=== PATIENT | female | born 1955 | race Caucasian/White ===

== ENCOUNTER 2019-11-26 13:07 | Outpatient (CLI) | payer MEDICARE, OTHER, SELFPAY ==
--- NOTE | ~2019-11-26 | MM_ITS ---
EXAMINATION: MM screening manuel BI w minnie HISTORY: Screening TECHNIQUE: Craniocaudal and mediolateral oblique 3-D tomosynthesis images were obtained and synthetic 2-D images were generated. CAD analysis was submitted and interpreted. COMPARISON: Comparison to multiple prior studies sequentially, with oldest reviewed study dated 01/22. BREAST PARENCHYMAL COMPOSITION: The breasts are heterogenously dense, which may obscure small masses. FINDINGS: There are is a developing asymmetry in the upper outer quadrant of the right breast. The le ft breast is stable without evidence for malignancy. IMPRESSION: 1. New focal asymmetry upper outer quadrant of the right breast posteriorly. 2. Additional mammographic views and possible breast ultrasound are recommended. BI-RADS Category 0: Incomplete: Needs additional imaging evaluation. Reviewed, dictated and finalized at location A. IMPRESSION: 1. New focal asymmetry upper outer quadrant of the right breast posteriorly. 2. Additional mammographic views and possible breast ultrasound are recommended . BI-RADS Category 0: Incomplete: Needs additional imaging evaluation.
--- NOTE | ~2019-11-26 | XR_ITS ---
XR hip LT min 2V DATE: 11/26/2019 13:46 INDICATION: Left hip pain TECHNIQUE: AP and lateral views of left hip COMPARISON: None FINDINGS: No fracture or dislocation, avascular necrosis or bone destruction. Left hip joint space is well preserved. IMPRESSION: Negative Reviewed, dictated and finalized at location B. IMPRESSION: Negative
--- NOTE | ~2019-11-26 | XR_ITS ---
XR hip RT min 2V DATE: 11/26/2019 13:46 INDICATION: Bilateral hip pain TECHNIQUE: AP and lateral views of right hip COMPARISON: None FINDINGS: No fracture, dislocation, avascular necrosis or bone destruction. Right hip joint space is well preserved. IMPRESSION: No significant abnormality Reviewed, dictated and finalized at location B. IMPRESSION: No significant abnormality
== END 2019-11-26 13:08 | disposition home or self-care (01) ==
LOC: CHSIMG 13:11
PROVIDERS: PCP Family Medicine; Visit Provider Nurse Practitioner
DX: Z12.31 Encounter for screening mammogram for malignant neoplasm of breast (principal); M25.551 Pain in right hip
CPT/HCPCS: 73502; 77063; 77067

== ENCOUNTER 2019-12-13 09:59 | Outpatient (CLI) | payer MEDICARE, OTHER, SELFPAY ==
--- NOTE | ~2019-12-13 | MMUS_ITS ---
EXAMINATION: MM diagnostic manuel RT w minnie, US breast RT limited HISTORY: Right breast asymmetry on screening mammogram TECHNIQUE: Additional 3-D tomosynthesis images of the right breast were performed and synthetic 2-D i mages were generated. CAD analysis was submitted and interpreted. High resolution limited right breas t ultrasound was performed. COMPARISON: 11/26/2019, 10/09/2018, 10/04/2017 FINDINGS: MAMMOGRAPHIC FINDINGS: The right breast asymmetry described on recent screening mammogram does not definitely persist with s pot compression. Stable benign calcifications are present in the upper outer quadrant of the right br east. There is no suspicious architectural distortion. ULTRASOUND: There is a 1.0 x 0.8 cm oval, circumscribed, parallel mass at the 9:00 location 5 cm from the nipple. The mass appears to be predominantly anechoic with possible internal septation. The margin is circum scribed with some areas of gentle lobulation. There is posterior acoustic enhancement and no internal vascularity. IMPRESSION: 1. Probably benign right breast mass. 2. Recommend 6 month follow-up right diagnostic mammogram and ultrasound. BI-RADS category 3, probably benign findings. Reviewed, dictated and finalized at location A. IMPRESSION: 1. Probably benign right breast mass. 2. Recommend 6 month follow-up right diagnostic mammogram and ultrasound. BI-RADS category 3, probably benign findings.
== END 2019-12-13 10:00 | disposition home or self-care (01) ==
LOC: CHSIMG 10:01
PROVIDERS: PCP Nurse Practitioner; Visit Provider Family Medicine
DX: R92.8 Other abnormal and inconclusive findings on diagnostic imaging of breast (principal)
CPT/HCPCS: 76642; 77061; 77065; G0279

== ENCOUNTER 2020-07-09 08:54 | Outpatient (CLI) | payer MEDICARE, SELFPAY ==
--- NOTE | ~2020-07-09 | MMUS_ITS ---
EXAMINATION: MM diagnostic manuel RT w minnie, US breast RT limited HISTORY: Follow-up right breast mass TECHNIQUE: Additional 3-D tomosynthesis images of the right breast were performed and synthetic 2-D i mages were generated. CAD analysis was submitted and interpreted. High resolution right breast ultras ound was performed. COMPARISON: 12/13/2019 BREAST PARENCHYMAL COMPOSITION: The breasts are extremely dense, which lowers the sensitivity of mamm ography. FINDINGS: MAMMOGRAPHIC FINDINGS: There are no suspicious masses, calcifications or architectural distortion in either breast to sugges t malignancy. There are benign right breast calcifications which are stable. ULTRASOUND: Right breast ultrasound: At 9:00, 5 cm from the nipple, there is a cluster of cysts measuring up to 1 cm maximum dimension. At 9:00, 5 cm from the nipple, there is an irregular shaped hypoechoic mass me asuring 11 x 9 x 6 mm with posterior shadowing. No significant internal vascularity. IMPRESSION: 1. New irregular shaped hypoechoic right breast mass at 9:00, 5 cm from the nipple measuring 11 x 9 x 6 mm. 2. Ultrasound-guided right breast biopsy recommended. BI-RADS category 4, suspicious findings. Reviewed, dictated and finalized at location A. IMPRESSION: 1. New irregular shaped hypoechoic right breast mass at 9:00, 5 cm from the nip ple measuring 11 x 9 x 6 mm. 2. Ultrasound-guided right breast biopsy recommended. BI-RADS category 4, suspicious findings.
== END 2020-07-09 08:55 | disposition home or self-care (01) ==
LOC: CHSIMG 08:58
PROVIDERS: PCP Family Medicine; Visit Provider Nurse Practitioner
DX: R92.8 Other abnormal and inconclusive findings on diagnostic imaging of breast (principal)
CPT/HCPCS: 76642; 77061; 77065; G0279

== ENCOUNTER 2021-08-04 08:09 | Outpatient (CLI) | payer MEDICARE, SELFPAY | END 2021-08-04 08:10 | disposition home or self-care (01) | LOC: CHSAUDIO 08:11 | PROVIDERS: PCP Family Medicine; Visit Provider Otolaryngology | DX: H91.90 Unspecified hearing loss, unspecified ear (principal) | CPT/HCPCS: 92557; 92567 ==

== ENCOUNTER 2021-08-31 09:39 | Outpatient (CLI) | payer MEDICARE, SELFPAY ==
--- NOTE | ~2021-08-31 | MR_ITS ---
EXAMINATION: MR shoulder LT wo con DATE: 08/31/2021 10:28 INDICATION: Left shoulder pain with rotator cuff tear TECHNIQUE: Magnetic resonance imaging (MRI) of the left shoulder was performed without intravenous co ntrast. Sequences included axial PD-weighted FS FSE, coronal oblique PD-weighted FS FSE, coronal obli que T2-weighted FS FSE, sagittal PD-weighted FS FSE, and sagittal T1-weighted SE. COMPARISON: None. FINDINGS: Coracoacromial arch: The acromion undersurface is curved in morphology (type II). The acromion appears thin and there is a small heterotopic ossicle along the anterolateral margin of the acromion at the insertion of the oth erwise normal coracoacromial ligament. Appearance suggests possibility of prior acromioplasty althoug h no foci susceptibility artifact are seen to more specifically suggest this. Correlate with surgical history. Acromioclavicular joint appears normal. Rotator cuff: Moderate supraspinatus and mild infraspinatus tendinopathy. There is attenuation of the distal 2 cm t he supraspinatus tendon consistent with partial thickness tear which appears to involve proximal one half of the tendon thickness. Suggestion of a small region of focal fraying along the bursal side of the posterior supraspinatus tendon but with no measurable are clearly defined tear defect along eithe r the bursal or articular surfaces. The teres minor tendon is normal. Subscapularis tendinopathy with very small intrasubstance tear along the central aspect of the lesser tuberosity footplate. The defe ct at the footplate measures approximately 3 x 3 mm. Normal rotator cuff muscle bulk and signal. Biceps tendon, glenoid labrum and glenohumeral cartilage: Long head of the biceps tendon is normal. Degeneration of the posterosuperior glenoid labrum with mil d amorphous increased signal without a well-defined linear tear plane. The posterior to inferior labr um appears small but without discrete tear. Glenohumeral cartilage is normal. Fluid: Physiologic amount of fluid in the glenohumeral joint and biceps tendon sheath. No loose osteochondr al bodies. Small amount of fluid in the subacromial/subdeltoid bursa consistent with mild bursitis. Bones: Bone alignment is normal. No fracture or pathologic marrow replacing process. Mild cystic changes at the lesser and greater tuberosity. Mild feathery muscular edema along the proximal aspect of the post erior head of the deltoid muscle consistent with low-grade strain. IMPRESSION: 1. Moderate supraspinatus tendinopathy with moderate severity partial-thickness likely intrasubstance tear of the distal supraspinatus which appears thickened with small region of subtle bursal sided fr aying but without a well-defined bursal or articular sided tear defect. 2. Mild subscapularis tendinopathy with very small intrasubstance tear at the central lesser tuberosi ty footplate. 3. Degeneration of the posterior superior glenoid labrum. 4. Mild subacromial/subdeltoid bursitis. Reviewed, dictated and finalized at location A. IMPRESSION: 1. Moderate supraspinatus tendinopathy with moderate severity partial-thickness likely intrasubstance tear of the distal supraspinatus which appears thickened with small region of subtle bursal sided fraying but without a well-defined bu rsal or articular sided tear defect. 2. Mild subscapularis tendinopathy with very small intrasubstance tear at the c entral lesser tuberosity footplate. 3. Degeneration of the posterior superior glenoid labrum. 4. Mild subacromial/subdeltoid bursitis.
== END 2021-08-31 09:40 | disposition home or self-care (01) ==
LOC: CHSIMG 09:43
PROVIDERS: PCP Family Medicine; Visit Provider Specialist
DX: M25.512 Pain in left shoulder (principal)
CPT/HCPCS: 73221

== ENCOUNTER 2022-09-02 13:52 | Emergency (ER) | payer MEDICARE, SELFPAY ==
[2022-09-02 13:55] VITALS: BP 165/94; PULSE 86; RESP 17; TEMP 36.6; O2SAT 97
[2022-09-02 13:56] VITALS: BP 165/94; PULSE 85; RESP 20; TEMP 36.6; O2SAT 97
--- NOTE | 2022-09-02 14:00 | ED.EXTPRO ---
HPI - Extremity Problem General Chief complaint: Extremity Injury, Lower Stated complaint: left ankle pain Time Seen by Provider: 09/02/22 13:58 Source: patient and RN notes reviewed Mode of arrival: ambulatory Limitations: no limitations History of Present Illness HPI Narrative: patient states she has not had any new injury. About a week ago she began having pain on the inside of her left ankle. Says it has been gradually getting worse. She does stay active walking 15,000 steps per day. She is planning on going to a high school reunion tomorrow and she wanted her ankle to be better by then. She does not know what is wrong with that. She took some ibuprofen 600 mg in the morning the past few days and that has helped. MD Complaint: extremity pain Onset (ago): week(s) (1) Pain Consistency: constant Location: right and lower extremity Quality: aching and dull Radiation: none Relieving factors: rest Exacerbating factors: weight bearing and walking Associated symptoms: denies other symptoms Related Data Home Medications Medication Instructions Recorded Confirmed fenofibrate nanocrystallized 48 mg 54 mg PO DAILY 06/09/21 09/02/22 tablet levothyroxine 88 mcg capsule 88 mcg PO DAILY 06/09/21 09/02/22 Allergies Allergy/AdvReac Type Severity Reaction Status Date / Time Opioids - Morphine Analogues Allergy Unknown unknown Verified 09/02/22 14:05 [facility] Past Medical History Medical History Arthritis Asthma Thyroid disorder Social History Social History Smoking status: Never smoker Alcohol intake: never Substance use: never Exam Const: General: healthy appearing, no acute distress and alert Nutritional Appearance: well nourished Orientation/consciousness: patient oriented x3 Limitations: no limitations HENMT: Head: normal to inspection Ears: external ears normal Face/Nose/Sinus: Normal external nose present Face and sinus: normal facial exam Mouth: Yes moist mucous membranes Eyes: Conjunctivae: conjunctivae normal Pupils: Equal, round and reactive pupils present EOM: EOMs intact bilaterally Neck: Neck: normal visual inspection Resp: Effort & Inspection: normal respiratory effort Auscultation: clear to auscultation bilaterally Cardio: Rate: regular rate Rhythm: regular rhythm GI: GI Palp: Yes Soft to palpation and No Tenderness to palpation present (GI) Auscultation: normal bowel sounds Back/Spine/Pelvis: Cervical Spine: cervical ROM normal Thoracic/Lumbar Spine: thoraco-lumbar ROM normal Skin: General skin exam: normal color Rashes: no rashes Neuro: General: patient oriented x3, moves all extremities, no focal motor deficits and CN's II-XI intact bilaterally Speech: normal speech Other: limping gait using a cane Extrem: General: normal exam except as noted and no clubbing, cyanosis or edema Left lower extremity: ankle Details: tenderness Location: of the medial malleolus and of the anterior talofibular ligament, abnormal ROM Details: pain with active ROM Details: with eversion and pain with passive ROM Details: with eversion and warmth Location: medially (mild); no swelling and no pitting edema Psych: Mental Status: mental status grossly normal Affect: normal affect Attitude: cooperative Course Vital Signs Vital signs: Vital Signs Temperature 36.6 C 09/02/22 13:55 Pulse Rate 86 09/02/22 13:55 Respiratory Rate 17 09/02/22 13:55 Blood Pressure 165/94 H 09/02/22 13:55 Pulse Oximetry 97 09/02/22 13:55 Oxygen Delivery Room Air 09/02/22 13:55 Temperature 36.7 C 09/02/22 15:25 Pulse Rate 83 09/02/22 15:25 Respiratory Rate 20 09/02/22 15:25 Blood Pressure 165/94 H 09/02/22 15:25 Pulse Oximetry 94 09/02/22 15:25 Oxygen Delivery Room Air 09/02/22 15:25 MDM - Extremity (Nontraumatic) MDM Narrative Medical decision making narrati
[2022-09-02 14:33] LABS: Basophils Absolute Auto 0.04 K/mm3 (0.00-0.10); Basophils Percent Auto 0.8 % (0.0-1.0); Eosinophils Absolute Auto 0.12 K/mm3 (0.02-0.50); Eosinophils Percent Auto 2.3 % (1.0-6.0); Hematocrit 36.4 % (35.0-42.0); Hemoglobin 12.3 g/dL (11.7-13.8); Immature Granulocyte Absolute 0.02 K/mm3 (0.00-0.00); Immature Granulocyte Percent A 0.4 % (0.0-0.0); Lymphocytes Absolute Auto 1.43 K/mm3 (1.10-4.50); Lymphocytes Percent Auto 26.9 % (18.0-42.0); Mean Corpuscular HGB Conc 33.8 g/dL (32.0-36.0); Mean Corpuscular Hemoglobin 30.8 pg (27.0-31.0); Mean Corpuscular Volume 91.2 fL (78.0-102.0); Monocytes Absolute Auto 0.36 K/mm3 (0.10-0.90); Monocytes Percent Auto 6.8 % (2.0-11.0); Neutrophils Absolute Auto 3.4 K/mm3 (1.7-7.2); Neutrophils Percent Auto 62.8 % (50.0-70.0); Platelet Count Result 254 K/mm3 (150-420); Red Blood Count 3.99 M/mm3 (4.20-5.40); Red Cell Distribution Width 12.5 % (11.6-14.4); White Blood Count 5.3 K/mm3 (4.8-10.8)
[2022-09-02 14:47] LABS: Uric Acid 1.6 mg/dL (2.6-6.0)
[2022-09-02 14:52] LABS: CRP < 0.5 mg/dL (0.0-0.9)
[2022-09-02] MEDS: KETOROLAC 30 MG/ML VIAL (*BKC) IM (15:08)
[2022-09-02 15:25] VITALS: BP 165/94; PULSE 83; RESP 20; TEMP 36.7; O2SAT 94
== END 2022-09-02 15:26 | disposition home or self-care (01) ==
PROVIDERS: Emergency Provider Emergency Medicine; PCP Family Medicine
DX: M19.072 Primary osteoarthritis, left ankle and foot (principal)
CPT/HCPCS: 36415; 84550; 85025; 86140; 96372; 99283; J1885

== ENCOUNTER 2023-07-21 08:20 | Outpatient (CLI) | payer MEDICARE, SELFPAY ==
[2023-07-21 09:39] LABS: Alanine Aminotransferase 24 U/L (14-59); Alkaline Phosphatase 61 U/L (46-116); Anion Gap 10 mmol/L (4-12); Aspartate Amino Transferase 18 U/L (15-37); Bilirubin,Total 0.3 mg/dL (0.00-1.00); Blood Urea Nitrogen 8 mg/dL (7-18); Calcium 9.3 mg/dL (8.5-10.1); Carbon Dioxide 26 mmol/L (21-32); Chloride 98 mmol/L (98-108); Cholesterol 221 mg/dL (0-200); Estimated Glomerular Filt Rate > 60; Glucose 96 mg/dL (70-99); HDL Direct 89 mg/dL (40-60); LDL Cholesterol Calculated 122 mg/dL (<130); Osmolality Calculated 276 mOsm/kg (285-295); Sodium 134 mmol/L (136-145); Total Protein 7.1 g/dL (6.4-8.2); Triglycerides 48 mg/dL (0-150)
[2023-07-21 09:40] LABS: Thyroid Stimulating Hormone Reflex 0.89 u/IU/mL (0.36-3.74)
[2023-08-01 12:46] LABS: Vitamin D 25 Hydroxy 29 ng/mL (30-100)
== END 2023-07-21 08:21 | disposition home or self-care (01) ==
LOC: CHSLAB 08:23
PROVIDERS: PCP Nurse Practitioner; Visit Provider Nurse Practitioner
DX: E78.2 Mixed hyperlipidemia (principal); I10 Essential (primary) hypertension; E03.9 Hypothyroidism, unspecified; E55.9 Vitamin D deficiency, unspecified
CPT/HCPCS: 36415; 80053; 80061; 82306; 84443

== ENCOUNTER 2023-08-10 10:17 | Outpatient (CLI) | payer MEDICARE, SELFPAY ==
--- NOTE | ~2023-08-10 | MR_ITS ---
MRI of the left ankle Clinical history: Pain Technique: Coronal proton-density and proton-density fat-sat images, axial proton-density and proton- density fat-sat images, and sagittal proton-density and proton-density fat-sat images were acquired. Findings: Syndesmotic ligaments are intact. Anterior and posterior talofibular ligaments, and calcane ofibular ligament appear intact. Deltoid ligament is intact. There is high-grade, probable complete tear of the distal tibialis posterior tendon. Flexor hallucis longus and flexor digitorum longus tendons are intact. Peroneal tendons, anterior extensor tendons, a nd Achilles tendon are intact. There is chondromalacia and focal osteochondral lesion of the medial corner of the talar dome, withou t collapse. There is minimal patchy marrow edema in the calcaneus and cuboid, nonspecific, presumably reactive. There is advanced degenerative change focally of the talonavicular joint, with subchondral cystic change in the talar head. Small plantar calcaneal spur present. There is mild thickening and increased signal of the plantar fa scia at the calcaneal origin. Small tibiotalar joint effusion present. Impression: High-grade, probable complete tear of the tibialis posterior tendon distally. Osteochondral lesion of the medial corner of the talar dome. Degenerative change of the talonavicular joint, as detailed above. Mild plantar fasciitis. Reviewed, dictated and finalized at [facility]. Impression: High-grade, probable complete tear of the tibialis posterior tendon distally. Osteochondral lesion of the medial corner of the talar dome. Degenerative change of the talonavicular joint, as detailed above. Mild plantar fasciitis.
== END 2023-08-10 10:18 | disposition home or self-care (01) ==
LOC: CHSIMG 10:19
PROVIDERS: PCP Nurse Practitioner; Visit Provider Specialist
DX: M25.572 Pain in left ankle and joints of left foot (principal); S96.812A Strain of other specified muscles and tendons at ankle and foot level, left foot, initial encounter; M89.9 Disorder of bone, unspecified; M72.2 Plantar fascial fibromatosis
CPT/HCPCS: 73721

== ENCOUNTER 2023-09-14 09:08 | Outpatient (CLI) | payer MEDICARE, SELFPAY ==
--- NOTE | ~2023-09-14 | MR_ITS ---
MRI of the right knee Clinical history: Pain and swelling Technique: Coronal proton density and proton density-weighted images, sagittal proton-density and T2 fat-sat images, and axial proton-density fat-saturated images were acquired. Findings: Anterior and posterior cruciate ligaments are intact. Medial collateral ligament and the la teral collateral ligament, as are intact. Popliteus tendon is intact. No definite medial or lateral meniscal tear seen. There is extensive grade IV chondromalacia throughout the patella, especially lateral facet and apex. There is mild irregularity the articular surface along the lateral facet, with focal subchondral cys tic change. There is diffuse grade IV chondromalacia the femoral trochlea with subchondral reactive m arrow edema and cystic change. There is diffuse moderate to high-grade patchy chondromalacia of the m edial and lateral femoral condyles. Moderate tricompartmental osteophyte formation is present. Extensor mechanism is intact. Minimal joint effusion present. No Porter's cyst. Impression: Severe tricompartmental osteoarthritis, as detailed above. No definite ligamentous injury or meniscal tear seen. Reviewed, dictated and finalized at [facility]. Impression: Severe tricompartmental osteoarthritis, as detailed above. No definite ligamentous injury or meniscal tear seen.
== END 2023-09-14 09:09 | disposition home or self-care (01) ==
PROVIDERS: PCP Nurse Practitioner; Visit Provider Specialist
DX: M17.11 Unilateral primary osteoarthritis, right knee (principal); M25.571 Pain in right ankle and joints of right foot
CPT/HCPCS: 73721

== ENCOUNTER 2023-09-19 13:47 | Outpatient (RCR) | payer MEDICARE, SELFPAY ==
--- NOTE | 2023-09-19 15:23 | OPREHPOC ---
Outpatient Therapy Plan of Care This is a Multidisciplinary Plan of Care that may contain components documented by all disciplines (PT, OT, and ST.) PT Problem 1 PT Problem #1 Knowledge Deficit PT Goal 1 Goal 1. independent and compliant with HEP Target Visit 4 PT Problem 2 PT Problem #2 Impaired Range of Motion PT Goal 1 Goal 1. achieve 20 degrees active L ankle DF 2. achieve 10 degrees active L eversion 3. achieve 25 degrees active L inversion Target Visit 8 PT Problem 3 PT Problem #3 Impaired Strength PT Goal 1 Goal 1. achieve 3+/5 or better L ankle IV 2. achieve 3+/5 or better L ankle EV 3. achieve 5/5 L ankle PF and DF PT Problem 4 PT Problem #4 Impaired Functional Mobil PT Goal 1 Goal 1. LEFS to display less than 20% functional deficits 2. patient to ambulate with normal gait mechanics with equal step/stride length Target Visit 8
--- NOTE | 2023-09-19 15:24 | PTOPEVAL1 ---
Assessment and note entered by JT File, PT Evaluation Information Assessment Status Evaluation Diagnosis L ankle pain, tear of tibialis posterior Onset 09/15/23 Subjective Information patient reports she injured her ankle last summer. she reports she woke up and stepped on the floor and she had swelling and pain immediately. she reports she was told initially it was arthritis. she was given an injection of the R ankle. she reports she also saw a communication skills instructor who thought she may have gout and checked her blood. she reports eventually she eventually found out she had a tendon rupture in the L ankle. she reports she did have an MRI. she reports she is not able to se the foot/ankle specialist until june of 2024. she reports she has aching in the L ankle all the time. she reports the outside of the ankle aches more than the inside of the ankle where the tear is. she reports she has increased pain with standing. she reports she is also limited in ability to walk for exercise. she is wearing an ASO brace on the L ankle. she reports without the brace on everything is worse. she reports she fell and broke a rib on the R side today. she reports she was walking her dog and he got excited about another dog and pulled her down by the leash. Reported Pain Level Pain Score 0: Self Report Assessment PT Clinical Summary mr. martin is a 68 yo woman who presents to skilled PT services for evaluation and treatment of L ankle pain and weakness. she has MRI confirmation of a torn posterior tibialis tendon. she displays decreased L ankle ROM, strength, and abnormal posture/gait mechanics. continued skilled PT is indicated to improve her objective/ functional deficits to improve her functional activity performance and quality of life. Plan of Care Interventions Gait Training,Manual Therapy,Neuro Re-education, Patient/Caregiver Educati,Therapeutic Activities, Therapeutic Exercise PT Services Indicated Yes Treatment Frequency and 2x weekly for 8 visits Duration These treatments will address the objective and functional deficits as defined above. The patient will be advanced safely and appropriately in order for the patient to progress towards his/her prior level of function. Additional exercises will be introduced and as well as a comprehensive home exercise program upon discharge, if needed, ?to ensure carryover of functional gains achieved in the clinic. This treatment plan has been reviewed and agreement upon by the patient.
--- NOTE | 2023-12-19 16:30 | PTOPDC ---
Assessment and note entered by Charley Barlow DPT Evaluation Information Assessment Status Evaluation Diagnosis L ankle pain, tear of tibialis posterior Onset 09/15/23 Subjective Information patient reports she injured her ankle last summer. she reports she woke up and stepped on the floor and she had swelling and pain immediately. she reports she was told initially it was arthritis. she was given an injection of the R ankle. she reports she also saw a infrastructure solutions architect who thought she may have gout and checked her blood. she reports eventually she eventually found out she had a tendon rupture in the L ankle. she reports she did have an MRI. she reports she is not able to se the foot/ankle specialist until june of 2024. she reports she has aching in the L ankle all the time. she reports the outside of the ankle aches more than the inside of the ankle where the tear is. she reports she has increased pain with standing. she reports she is also limited in ability to walk for exercise. she is wearing an ASO brace on the L ankle. she reports without the brace on everything is worse. she reports she fell and broke a rib on the R side today. she reports she was walking her dog and he got excited about another dog and pulled her down by the leash. Assessment PT Clinical Summary mr. martin is a 68 yo woman who presents to skilled PT services for evaluation and treatment of L ankle pain and weakness. she has MRI confirmation of a torn posterior tibialis tendon. she displays decreased L ankle ROM, strength, and abnormal posture/gait mechanics. continued skilled PT is indicated to improve her objective/ functional deficits to improve her functional activity performance and quality of life. Plan of Care PT Services Indicated Yes
--- NOTE | 2023-12-19 16:30 | PCPTNOTE ---
patient discharged at this time and is returning to care for new case
== END 2023-09-28 11:00 | disposition home or self-care (01) ==
LOC: CHSPT 13:47
PROVIDERS: Visit Provider Specialist
DX: S86.21 Strain of muscle(s) and tendon(s) of anterior muscle group at lower leg level (principal)
CPT/HCPCS: 97110; 97112; 97140; 97161

== ENCOUNTER 2023-12-20 09:52 | Outpatient (RCR) | payer MEDICARE, SELFPAY ==
--- NOTE | 2023-12-20 11:00 | OPREHPOC ---
Outpatient Therapy Plan of Care This is a Multidisciplinary Plan of Care that may contain components documented by all disciplines (PT, OT, and ST.) PT Problem 1 PT Problem #1 Knowledge Deficit PT Goal 1 Goal / Goal Update 1. independent and compliant with HEP Target Visit 6 PT Problem 2 PT Problem #2 Pain PT Goal 1 Goal / Goal Update 1. no pain in the L ankle/foot Target Visit 10 PT Problem 3 PT Problem #3 Impaired Range of Motion PT Goal 1 Goal / Goal Update 1. active L ankle DF to 15 degrees or better 2. active L ankle PF to 40 degrees or better 3. active L ankle inversion to 25 degrees or better 4. active L ankle eversion to 10 degrees or beter Target Visit 18 PT Problem 4 PT Problem #4 Impaired Strength PT Goal 1 Goal / Goal Update 1. 5/5 R ankle IV/EV strength 2. 4+/5 or better L ankle strength overall Target Visit 18 PT Problem 5 PT Problem #5 Impaired Functional Mobil PT Goal 1 Goal / Goal Update 1. patient to ambulate with normal gait mechanics in normal shod wear 2. patient to ambulate up and down steps with reciprocal mechanics 3. LEFS to display 20% or less functional deficits 4. patient to return to daily walking and exercise routine Target Visit 18
--- NOTE | 2023-12-20 11:00 | PTOPEVAL1 ---
Assessment and note entered by JT File, PT Evaluation Information Assessment Status Evaluation Diagnosis achilles tendon lengthening, post tib tendon repair, other tendon/ligaments ICD-10 Condition Codes (PT) Z47.89 Onset 11/09/23 Subjective Information patient had L ankle/foot surgery on 11/09/23. she had several things done during her surgery: Cotton Osteotomy, Paula Calcaneal osteotomy, posterior tibial tendon repair, spring ligament repair, achilles tendon lengthening, peroneus longus tendon lengthening, peroneus longus to brevis transfer. she reports prior to surgery, she rupture of several tendons and ligaments. she reports since surgery she was NWB, then PWB with AD, and now has been walking around WBAT in boot on the L LE. patient reports she is ready to get out of the boot and back into a shoe. patient reports she has no pain currently, but is numb in the L foot (big toe, inside the foot, and arch of the foot. Reported Pain Level Pain Score 0: Self Report Assessment PT Clinical Summary mrs. martin is a 68 yo woman who presents to skilled PT services for rehab following L ankle/ foot surgery. she had multiple tendon and ligament repairs/lengthening's during her surgery. she has been limited in WB in a boot, but has been active in her boot without an AD lately. she displays decreased rom, strength, and abnormal gait mechanics today. continued skilled PT is indicated to improve patients objective/functional deficits and return to prior level functional activity performance/quality of life. Plan of Care Interventions Gait Training,Hot Pack/Cold Pack,Intermittent Compression,Manual Therapy,Neuro Re-education, Patient/Caregiver Educati,Therapeutic Activities, Therapeutic Exercise PT Services Indicated Yes Treatment Frequency and 3x weekly for 18 visits Duration These treatments will address the objective and functional deficits as defined above. The patient will be advanced safely and appropriately in order for the patient to progress towards his/her prior level of function. Additional exercises will be introduced and as well as a comprehensive home exercise program upon discharge, if needed, ?to ensure carryover of functional gains achieved in the clinic. This treatment plan has been reviewed and agreement upon by the patient.
--- NOTE | 2024-02-14 08:50 | OPREHPOC ---
Outpatient Therapy Plan of Care This is a Multidisciplinary Plan of Care that may contain components documented by all disciplines (PT, OT, and ST.) PT Problem 1 PT Problem #1 Knowledge Deficit PT Goal 1 Goal / Goal Update 1. independent and compliant with HEP Target Visit 6 Progress Met PT Problem 2 PT Problem #2 Pain PT Goal 1 Goal / Goal Update 1. no pain in the L ankle/foot Target Visit 10 Progress Met PT Problem 3 PT Problem #3 Impaired Range of Motion PT Goal 1 Goal / Goal Update 1. active L ankle DF to 15 degrees or better 2. active L ankle PF to 40 degrees or better. not met 3. active L ankle inversion to 25 degrees or better 4. active L ankle eversion to 10 degrees or beter Target Visit 18 Progress Partially Met PT Problem 4 PT Problem #4 Impaired Strength PT Goal 1 Goal / Goal Update 1. 5/5 R ankle IV/EV strength 2. 4+/5 or better L ankle strength overall Target Visit 18 Progress Partially Met PT Problem 5 PT Problem #5 Impaired Functional Mobil PT Goal 1 Goal / Goal Update 1. patient to ambulate with normal gait mechanics in normal shod wear 2. patient to ambulate up and down steps with reciprocal mechanics 3. LEFS to display 20% or less functional deficits 4. patient to return to daily walking and exercise routine Target Visit 18 Progress Met
--- NOTE | 2024-02-14 08:50 | PTOPDC ---
Assessment and note entered by JT File, PT Evaluation Information Assessment Status Discharge Diagnosis achilles tendon lengthening, post tib tendon repair, other tendon/ligaments ICD-10 Condition Codes (PT) Z47.89 Onset 11/09/23 Subjective Information patient reports she feels Good today. she reports she has no pain in the ankle. she reports she has a little aching from time to time, but is back to prior level walking. she reports she would like to be DC'd today. she is back to wearing tennis shoes. Assessment PT Clinical Summary mrs. martin presents to skilled PT for her 10th skilled PT visit. as of this date, she no longer has pain in the L ankle, and has improved in rom and strength. she is back to ambulation in normal shod wear, and has met all goals for skilled PT except for ankle PF arom. she will DC skilled PT today, and continue with HEP independent at home. Plan of Care PT Services Indicated Yes
== END 2024-01-16 10:15 | disposition home or self-care (01) ==
LOC: CHSPT 09:52
DX: Z47.89 Encounter for other orthopedic aftercare (principal); M24.572 Contracture, left ankle; M67.02 Short Achilles tendon (acquired), left ankle
CPT/HCPCS: 97016; 97110; 97112; 97140; 97161

== ENCOUNTER 2024-02-19 07:49 | Outpatient (CLI) | payer MEDICARE, SELFPAY ==
[2024-02-19 09:07] LABS: Anion Gap 10 mmol/L (4-12); Blood Urea Nitrogen 8 mg/dL (7-18); Calcium 9.5 mg/dL (8.5-10.1); Carbon Dioxide 27 mmol/L (21-32); Chloride 101 mmol/L (98-108); Estimated Glomerular Filt Rate > 60; Glucose 82 mg/dL (70-99); Osmolality Calculated 283 mOsm/kg (285-295); Potassium 4.2 mmol/L (3.5-5.1); Sodium 138 mmol/L (136-145)
== END 2024-02-19 07:50 | disposition home or self-care (01) ==
LOC: CHSLAB 07:53
PROVIDERS: PCP Nurse Practitioner
DX: I10 Essential (primary) hypertension (principal)
CPT/HCPCS: 36415; 80048

== ENCOUNTER 2024-10-07 09:50 | Outpatient (CLI) | payer MEDICARE, SELFPAY ==
--- OUTSIDE RECORDS SUMMARY | 2024-10-07 10:37 | XMS_ITS | Patient Health Record ---
Author Organization [facility] Address [address] [place], [place] [id number] Care Team Providers Care Printing Bindery Assistant Name Role Phone MANUEL TONG Unavailable [phone] Archie Underwood Unavailable Unavailable Allergies Allergen (clinical drug ingredient) Drug/Non Drug Allergy documented on EMR Reaction Allergy Type Onset Date Status codeine Codeine Unknown Drug Allergy 06/12/2016 active Reason For Referral No Information Medications Medication SIG (Take, Route, Frequency, Duration) Notes Start Date End Date Status Colchicine 0.6 MG 1 tablet Orally for 30 day(s) Active Medrol 4 MG as directed Orally 3 Active Ibuprofen 800 MG 1 tablet with food or milk as needed Orally every 8 hrs for 14 days 3 Active montelukast 10 MG Oral Tablet [Singulair] ORAL montelukast 10 MG Oral Tablet [Singulair]Original Medicationmontelukast 10 MG Oral Tablet [Singulair] *Reorder from [employer] for eRx and Interaction Alerts* 7 Active levothyroxine sodium 0.1 MG Oral Tablet [Synthroid] ORAL levothyroxine sodium 0.1 MG Oral Tablet [Synthroid]Original Medicationlevothyroxine sodium 0.1 MG Oral Tablet [Synthroid] *Reorder from [employer] for eRx and Interaction Alerts* 7 Active 14 ACTUAT fluticasone furoate 0.1 MG/ACTUAT / vilanterol 0.025 MG/ACTUAT Dry Powder Inhaler [Breo] INTRAPULMONARY 14 ACTUAT fluticasone furoate 0.1 MG/ACTUAT / vilanterol 0.025 MG/ACTUAT Dry Powder Inhaler [Breo]Original [id number] ACTUAT fluticasone furoate 0.1 MG/ACTUAT / vilanterol 0.025 MG/ACTUAT Dry Powder Inhaler [ 7 Active Immunizations Vaccine Route Administration Date Status Comme nts Influenza, high-dose seasona l, quadrivalent, preservative free >65 yrs Unknown 09/16/2022 Administered Plan Of Treatment No Information Insurance Providers Payer Name Payer Address Payer Phone Subscriber Number Group Number Insured Name Patient Relationship to Insured Coverage Start Date Coverage End Date Medicare Part B [place] [address] [place] [phone] [id number] GABRIELE TRAYLOR Self - patient is the insured [facility] [address] [address] [place], [place] [phone] [id number] GABRIELE TRAYLOR Self - patient is the insured Medical (General) History Medical History History ICD Code asthma - mild persistent Arthritis Thyroid Disease Surgical History Surgery Date(Month/Year) Knee Surgery Shoulder repair Elbow surgery Wrist Surgery
--- OUTSIDE RECORDS SUMMARY | 2024-10-07 10:37 | XMS_ITS | Clinical Summary ---
Author Organization [facility] [employer] Address [address] [place] [address] Care Team Providers Care Beamster Name Role Phone Yue Gutierrez MARCOS-ACREAGE REPORTER Primary Care Provider [phone] Source Comments [facility] [employer],non-owned Affiliates and Associated Physician Practices is amultiple site organization consisting of ambulatory clinics and hospital sitesin [place], [place], [place] and [place]. This disclosure is being madepursuant to the Care Everywhere program and may not contain all information available regarding this patient. Last updated 18.[facility] [employer] [facility] Allergies Active Allergy Reactions Criticality Noted Date Comments Codeine Nausea and/or Vomiting Medium 11/08/2023 Severe nausea and vomiting with narcotics Medications * Be aware that medications may not be up to date on this document. Alwaysverify current medications with the patient. fenofibrate (Lofibra) 54 MG tablet Take 1 (one) tablet by mouth once daily Take with largest meal of the day. Active losartan (Cozaar) 50 MG tablet Take 1 (one) tablet by mouth once daily Active levothyroxine (Synthroid) 88 MCG tablet Take 1 (one) tablet by mouth daily before breakfast Active budesonide-form oterol (Symbicort) 160-4.5 MCG/ACT inhaler Inhale 2 (two) puffs by mouth once daily as needed (seasonal asthma) Active albuterol HFA (Proventil; Ventolin; Proair) 108 (90 Base) MCG/ACT inhaler Inhale 2 (two) puffs by mouth every 6 hours as needed (seasonal asthma) Active Social History Tobacco Use Types Packs/Day Years Used Date Smoking Tobacco: Never Smokeless Tobacco: Never Tobacco Cessation:Counseling Given: Not Answered Alcohol Use Standard Drinks/Week Comments Never 0 (1 standard drink = 0.6 oz pur e alcohol) AUDIT-C Answer Date Recorded Q1: How often do you have a drink containing alcohol? Never 11/09/2023 Q2: How many drinks containi ng alcohol do you have on a typical day when you are drinking? Patient does not drink Q3: How often do you have si x or more drinks on one occasion? Never 11/09/2023 Comments Unknown Sex and Gender Information Value Date Recorded Sex Assigned at Female 10/23/2023 9:15 AM CDT Legal Sex Female 8:51 AM CDT Gender Identity Female 10/23/2023 9:15 AM CDT Sexual Orientation Straight 10/23/2023 9: 15 AM CDT Last Filed Vital Signs Vital Sign Reading Time Taken Comments Blood Pressure 152/87 11/09/2023 2:20 PM CDT Pulse 92 11/09/2023 2:20 PM CDT Temperature 35.9 C (96.7 F) 11/09/2023 12:56 PM CDT Respiratory Rate 18 11/09/2023 2:20 PM CDT Oxygen Saturation 97% 11/09/2023 2:20 PM CDT Inhaled Oxygen Concentration - - Weight 58.5 kg (129 lb) 11/09/2023 8:15 AM CDT Height 162.6 cm (5' 4) 11/09/2023 8:15 AM CDT Body Mass Index 22.14 11/09/2023 8:15 AM CDT Plan of Treatment Health Maintenance Due Date Last Done Comments COLOGUARD (AGES 45-75) - COL ON CA SCREENING 1954 COLON MONITORING 1954 COLONOSCOPY - COLON CA SCREENING 1954 CT COLONOGRAPHY - COLON CA SCREENING 1954 Colorectal Cancer Screening 1954 FIT - COLON CA SCREENING 1954 FLEX SIG - COLON CA SCREENING 1954 LIPID TESTING 1955 MEDICARE AWV 12 MONTHS 1954 HEPATITIS C SCREENING 03/20/1972 DTAP/TDAP/TD VACCINES (1 - Tdap) 1973 PNEUMOCOCCAL VACCINE 50+ (1 of 1 - PCV) 2004 ZOSTER VACCINE (1 of 2) 2004 COVID-19 VACCINE (3 - 2023-2 5 season) 2023 05/23/2020, 04/25/2020 DEPRESSION SCREENING 04/24/2024 INFLUENZA VACCINE (Season Ended) 2024 01/22/2021, 01/09/2019 MAMMOGRAM 10/29/2025 10/30/2023, 10/30/2023 Respiratory Syncytial Virus (RSV) Vaccine Pt: or over 60 yrs (1 - 1-dose 75+ series) 2029 BONE DENSITY TESTING Completed 11/12/2018 HEPATITIS B VACCINE Aged Out No longe r eligible based on patient's age to complete this topic HIB VACCINE Aged Out No longer eligi ble based on patient's age to complete this topic HPV VACCINE Aged Out No longer eligi ble based on patient's age to complete this topic MENINGOCOCCAL (Group B) VACCINE SHARED DECISION-MAKING Aged Out No longer eligible based on patient's age to complete this topic MENINGOCOCCAL GROUPS A/C/Y/W VACCINE Aged Out No longer eligible b ased on patient's age to complete this topic Medical Devices Implanted Type Area Tafe Registrar Device Identifier Shelf Expiration Date Model / Serial / Lot Biosync Paula Wedge, [id number] Implanted:Qty: 1 on 11/09/2023 by Everardo Ortiz DPM at [facility] Left: Ankle [employer] 03/23/2028 [id number]-[id number] / / [id number] Kit Arthsc Fx 4.75mm 3.5mm Internalbrace Implanted:Qty: 1 on 11/09/2023 by Everardo Ortiz DPM at [facility] Left: Ankle [employer] 08/21/2025 [id number] / / [id number] Biosync Anatomic Cotton Wedge, 16x4.5mm Implanted:Qty: 1 on 11/09/2023 by Everardo Ortiz DPM at [facility] Left: Ankle [employer] 10/21/2026 [id number] / / [id number] Insurance MEDICARE AETNA Care Teams Beamster Relationship Specialty Start Date End Date Y[place] [id number] PCP - General Nurse Practitioner 11/09/23
--- OUTSIDE RECORDS SUMMARY | 2024-10-07 10:37 | XMS_ITS | Clinical Summary ---
Author Organization [facility] Address [address] [place] [address] Care Team Providers Care Cardio Tech Name Role Phone Yue Gutierrez NP Primary Care Provider [phone] Allergies Active Allergy Reactions Criticality Noted Date Comments Codeine Fatigue Low 11/12/2018 Medications BREO ELLIPTA 200-25 mcg/dose diskus inhaler TAKE 1 PUFF BY MOUTH EVERY DAY 4 10/22/2018 Active levothyroxine (SYNTHROID, LEVOTHROID) 88 mcg tablet Take 88 mcg by mouth daily 6 10/12/2018 Active montelukast (SINGULAIR) 10 mg tablet Take 10 mg by mouth daily 3 10/08/2018 Active ibandronate (BONIVA) 150 mg tabletIndication s:Osteoporosis of multiple sites Take 1 tablet (150 mg total) by mouth every 30 (thirty) days Take in AM with glass of water prior to food, don't lie down for 30 minutes. 3 tablet 3 11/12/2018 Active Active Problems Problem Noted Date Diagnosed Date History of vitamin D deficiency 11/12/2018 Osteoporosis of multiple sites 11/12/2018 Overview (11/12/2018): Based on DXA at OSH, spine T-score -2.7 (July 2018) Surgical History Surgery Date Site/Laterality Comments KNEE ARTHROSCOPY ELBOW SURGERY Medical History Medical History Date Comments Osteoporosis Social History Tobacco Use Types Packs/Day Years Used Date Smoking Tobacco: Never Smokeless Tobacco: Never Personal Safety Answer Date Recorded Getting School Help Needed Not on file 07/08 Comments Unknown Sex and Gender Information Value Date Recorded Sex Assigned at Not on file Legal Sex Female 11:37 AM CDT Gender Identity Female 08/27/2018 11:51 AM CDT Sexual Orientation Not on file Obstetrics History Last Filed Vital Signs Vital Sign Reading Time Taken Comments Blood Pressure 159/83 10/11/2021 1:10 PM CDT Pulse 77 10/11/2021 1:10 PM CDT Temperature 37 C (98.6 F) 11/12/2018 10:44 AM CDT Respiratory Rate - - Oxygen Saturation - - Inhaled Oxygen Concentration - - Weight 61.2 kg (135 lb) 10/11/2021 1:10 PM CDT Height 162.6 cm (5' 4) 10/11/2021 1:10 PM CDT Body Mass Index 23.17 10/11/2021 1:10 PM CDT Plan of Treatment Health Maintenance Due Date Last Done Comments Breast Cancer Screening-Mammogram 1954 Colon Cancer Screening-Colonoscopy 1954 Depression Screening 1954 Fall Risk Assessment 1954 Hepatitis C Screening 1954 Hepatitis B Screening 1972 Zoster Vaccine (1 of 2) 2004 Well Visit 65+ 2019 Osteoporosis Screening-Bone Density Scan 11/12/2020 11/12/2018 Covid-19 Vaccine (5 - 2023-2 5 season) 2023 08/04/2021, 02/15/2021, 05/23/2020, Additional history exists Influenza Vaccine (Season Ended) 2024 01/23/20, 01/09/2019 DTaP/Tdap/Td Vaccine (2 - Td or Tdap) 02/21/2029 02/21/2019 Pneumococcal vaccine 65+ Completed 06/03/2021, 09/22 Procedures Procedure Name Priority Date/Time Associated Diagnosis Comments DEXA AXIAL SKELETON BONE DENSITY 1 OR MORE SITES Schedule Routine, Read Routine (OP Routine) 11/12/2018 10:56 AM CDT Osteoporosis, unspecified osteoporosis type, unspecified pathological fracture presence from Last 3 Months or Most Recently Relevant to Health Maintenance Results * Dexa Axial Skeleton Bone Density 1 or 2 Site (11/12/2018 10:56 AM CDT) Anatomical Region Laterality Modality Body N/A Radiographic Bridget ging Narrative 11/12/2018 11:45 AM CDT Patient Name: Michelle Santana Date of : 1955 Date of scan: 11/12/2018 Bone mineral density was performed on a Hologic Discovery Densitometer. Machine Cross-calibration and Precision studies have been performed with a least significant change of 0.024 g/cm at the spine, 0.020 g/cm at the total proximal femur, and 0.014g/cm at the forearm. HISTORY: This is a 63 y.o. postmenopausal female with a history of asthma and osteoporosis. Currently on treatment with calcium, thyroid hormone and vitamin D. Previously treated with Boniva and hormone replacement therapy. History of tobacco use: Social History Tobacco Use Smoking Status Not on file INDICATIONS: Menopause status, history of prior wrist fracture and history of osteoporosis. FINDINGS: BONE MINERAL DENSITY OF THE LUMBAR SPINE Bone Mineral Density (BMD) of the lumbar spine was measured from L1-L4 and the average density was calculated to be 0.784 gm/cm. This corresponds to a T-score standard deviations from the mean of young adults of -2.4. There is no previous study available for comparison. BONE MINERAL DENSITY OF THE PROXIMAL FEMUR Bone Mineral Density (BMD) of the left hip total was found to be 0.783 gm/cm2. This corresponds to a T-score standard deviations from the mean of young adults of -1.3. Femoral neck is 0.588 gm/cm2 with a T-score of -2.3. There is no previous study available for comparison. SUMMARY: Bone mineral density shows evidence of low bone mass in the spine and hip and moderately increased fracture risk. ADDITIONAL COMMENTS: If the patient has a history of a fragility fracture, a fracture that occurred with trauma equivalent to a fall from a standing position or less, then the diagnosis is osteoporosis. The risk of osteoporotic fracture increases approximately 2-fold for each 1.0 SD decrease in T-score. However, low bone density is not the only risk factor for fracture. Other factors include patient s age, previous osteoporotic fracture or prior fracture as an adult, loss of height of greater than 2 inches, corticosteroid use, risk of falling, risk of injury, and family history of osteoporosis. Not everyone with low bone mineral density has osteoporosis. Osteomalacia and other metabolic bone disorders should also be considered where indicated. Patients who have osteoporosis should be evaluated for specific diseases and conditions (secondary causes) that may cause or contribute to bone loss. Consider repeating this study in 1-2 years to assess the patient s response to treatment, if applicable. It is recommended that any follow up exam be performed on the same machine if possible for better accuracy. DEFINITIONS: Osteoporosis: BMD at or below -2.5 T-score Osteopenia (low bone mass): BMD between -1.0 and-2.5 T-score. The Bone Health Program adopts the following WHO definitions: Osteoporosis: BMD below -2.5 S.D. as compared to the BMD of young normal adults. Osteopenia or Low Bone Mass: BMD between -1.0 and -2.5 S.D. below the BMD of young normal adults. Normal Bone Density: BMD equal to or greater than -1.0 S.D. as compared to the BMD of young normal adults. References: 1) Ganesh, Annals of Internal Medicine 114(11): 919-923 (1990) 2) Gerard, Lancet 341 : 72-75 (1992) 3) Black, Journal Bone and Mineral Research 7(6): 633-8 (1991) 4) Matute, Journal Bone and Mineral Research 8(10):1227-33 (1992) The history and data sections of the bone mineral density scan were prepared by Leonor Roe) KRISTEN who is accredited by the International Society of Clinical Densitometry. The overall patient assessment and scan interpretation were performed by Markel Gomez M.D. who is certified by the International Society of Clinical Densitometry. [id number] Markel Gomez MD IMG DXA PROCEDURES Final Re sult from Last 3 Months or Most Recently Relevant to Health Maintenance Insurance MEDICARE AET SENIOR SUPPLEMENT MEDICARE AET SENIOR SUPPLEMENT MEDICARE AETNA SENIOR SUPPLEMENT Care Teams Cardio Tech Relationship Specialty Start Date End Date Yue Gutierrez NP PCP - General 11/12/18
--- OUTSIDE RECORDS SUMMARY | 2024-10-07 10:37 | XMS_ITS | Continuity of Care Document ---
Author Organization [facility] Address [address] [place] [address] Phone Care Team Providers Care Soft Tile Setter Name Role Phone Garo Leone DO Unavailable [...] OFFICE/OUTPA TIENT VISIT NEW [facility], [address], [place], [address], tel:[phone] [facility] [place] Right knee pain, unspecified chronicityPrimar y osteoarthritis of right knee [address] [place], [place], [place], [address] . tel:[phone] Referring Provider: Yue Gutierrez, [address] [place], [address]. tel:[phone] Family History Family Member Type Diagnosis Age At Onset No Information Payers Payer name Insurance type Covered constitution party ID Marguerite oseguera(s) Medicare E2 OT [id number] Social History Type Description Quantity Date Captured [...]
--- OUTSIDE RECORDS SUMMARY | 2024-10-07 10:37 | XMS_ITS | Referral Summary ---
Author Organization [facility] Address [address] [place] [address] Care Team Providers Care Electric Motor Tester Assembler Name Role Phone Yue Gutierrez NP Primary Care Provider [phone] Allergies Active Allergy Reactions Criticality Noted Date [...] at OSH, spine T-score -2.7 (July 2018) Social History Tobacco Use Types Packs/Day Years Used Date Smoking Tobacco: Never Smokeless Tobacco: Never Personal Safety Answer Date Recorded Getting School Help Needed Not on file 07/08 Comments Unknown Sex and Gender Information Value Date Recorded Sex Assigned at Not on file Legal Sex Female 11:37 AM CDT Gender Identity Female 08/27/2018 11:51 AM CDT Sexual Orientation Not on file Last Filed Vital Signs Vital Sign Reading [...] 10/11/2021 1:10 PM CDT Plan of Treatment Not on file Procedures Procedure Name Priority Date/Time Associated Diagnosis [...] of Internal Medicine 114(11): 919-923 (1990) 2) Moustapha, Lancet 341 : 72-75 (1992) 3) Reagan, Journal Bone and Mineral Research 7(6): 633-8 (1991) 4) Giovani, Journal Bone and Mineral Research 8(10):1227-33 (1992) The history and data sections of the bone mineral density scan were prepared by Leonor Roe) KRISTEN who is accredited by the International Society of Clinical Densitometry. The overall patient assessment and scan interpretation were performed by Markel Gomez M.D. who is certified by the International Society of Clinical Densitometry. [id number] Markel Gomez MD IMG DXA PROCEDURES Final Re sult from Last 3 Months or Most Recently Relevant to Health Maintenance Insurance MEDICARE AET[employer] SENIOR SUPPLEMENT MEDICARE AETNA SENIOR SUPPLEMENT MEDICARE AETNA SENIOR SUPPLEMENT Care Teams Electric Motor Tester Assembler Relationship Specialty Start Date End Date Yue Gutierrez NP PCP - General 11/12/18
== END 2024-10-07 09:51 | disposition home or self-care (01) ==
LOC: CHSAUDIO 09:52
PROVIDERS: PCP Nurse Practitioner; Visit Provider Otolaryngology
DX: H90.3 Sensorineural hearing loss, bilateral (principal); H61.23 Impacted cerumen, bilateral
CPT/HCPCS: 92557; 92567

== ENCOUNTER 2024-11-11 08:56 | Outpatient (RCR) | payer MEDICARE, SELFPAY | END 2025-02-09 23:59 | disposition home or self-care (01) | LOC: CHSAUDIO 08:56 | PROVIDERS: PCP Family Medicine | DX: Z46.1 Encounter for fitting and adjustment of hearing aid (principal) | CPT/HCPCS: 99199 ==

== ENCOUNTER 2025-01-06 10:20 | Outpatient (CLI) | payer MEDICARE, SELFPAY ==
--- OUTSIDE RECORDS SUMMARY | 2024-06-17 08:30 | XMS_ITS | Continuity of Care Document ---
Author Organization [facility] Address [address] [place] [address] Phone Care Team Providers Care Builder'S Labourer Name Role Phone Garo Leone DO Unavailable Unavailab le Allergies, Adverse Reactions, Alerts Substance Reaction Status Criticality Opioids - Morphine Analogues Active No Information Medications Medication Instructions Dosage Effective Dates (start - stop) Status Comments losartan 50 mg tablet - Active rosuvastatin 5 mg tablet - Activ e fenofibrate 54 mg tablet - Activ e levothyroxine 88 mcg capsule - Active Procedures Procedure Date RADEX KNE 3 VIEWS OFFICE/OUTPATIENT VISIT NEW Advance Directives Directive Yes / No Effective Date File Name Other Directive No N/A N/A WARNING:The information contained in this section is historical and is provided for information only and does not constitute a legal document or any assurance that the information is still accurate. Please verify the information with the long of the legal document before using it for clinical purposes. Encounters Encounter Description Practice Location Reason(s) For Visit Diagnoses Date Provider Providers Copied on Encounter OFFICE/OUTPA TIENT VISIT NEW [facility], [address], [place], [address], tel:[phone] [facility] [place] Right knee pain, unspecified chronicityPrimar y osteoarthritis of right knee [address] [place], [place], [place], [id number] . tel:[phone] Referring Provider: Yue Gutierrez, [address] [place], [address]. tel:[phone] Family History Family Member Type Diagnosis Age At Onset No Information Payers Payer name Insurance type Covered alliance party ID Marguerite oseguera(s) Medicare E2 OT [id number] Social History Type Description Quantity Date Captured Comments Alcohol Use Details No Caffeine Use Details Unknown Tobacco Use Status Current non-smoker Smoking Status Never smoker Non-Smoking Tobacco Use Details : No Details Available : No Details Available Sex Female Vital Signs Date / Time: Height Weight BMI Pulse Rate Blood Pressure Temperature Respiratory Rate Body Surface Area Head Circumference Head Circ. Percentile Wt./Lisandro. Percentile BMI percentile Pulse Ox Inhaled Ox 1:32 PM 64.00 in 58.967 kg (130.00 lbs) 22.3 1 kg/m eter (2) 1.63 meter(2) Chief Complaint And Reason For Visit No Information Reason For Referral Reason For Referral No Information Plan Of Treatment Date Type Action Status Referral Ordered: RADEX KNE 3 VIEWS RT knee ordered History Of Present Illness Encounter Date Complaint History Of Prese nt Illness No Information Functional Status Date Functional Assessmen t No Information Instructions Date Instruction Additional Infor mation No Information Assessments Type Assessment Date assessment Right knee pain, unspecified chr onicity assessment Primary osteoarthritis of right knee Patient Care Teams Name Effective Dates (start - stop) Status Members No Information
--- NOTE | ~2025-01-06 | NM_ITS ---
EXAMINATION: ANTONY bowden renal scan DATE: 01/06/2025 12:34 INDICATION: Bilateral hydronephrosis TECHNIQUE: 10.4 mCi Tc-99m MAG3 was administered IV. 40 mg furosemide was administered IV 12 minutes afterward. The patient was scanned in the supine position. A posterior abdominal radionuclide angiogram was obtained. A subsequent time course of static images of the kidneys, ureters, and bladder was obtained. COMPARISON: None FINDINGS: The posterior abdominal radionuclide angiogram and sequential static images show normal size, position, and morphology of the kidneys. Peak renal parenchymal uptake was 4.5 min in left kidney and 5.5 min in right kidney (normal peak 3-5 minutes). The relative early renal uptake was 40% on the left and 52% on the right (<40% is abnormal). No abnormalities of the ureters or bladder are seen. T1/2 for clearance of activity from the left kidney and proximal collecting system was 11 minutes. T1/2 for clearance of activity from the right kidney and proximal collecting system was 11 minutes. Notes on interpretation: T1/2 <10 minutes is normal, 10-15 minutes is low grade obstruction of questionable clinical significance, 15-20 minutes is partial obstruction that is likely clinically significant, >20 minutes is high grade obstruction. Note that false positives may be seen with supine positioning, dehydration, severely dilated nonobstructed kidney, atonic collecting system, poor renal function, and chronic furosemide use. IMPRESSION: 1. Symmetric kidney function. 2. No delay in contrast clearance from either kidney to suggest fixed obstruction. Reviewed, dictated and finalized at location A. IMPRESSION: 1. Symmetric kidney function. 2. No delay in contrast clearance from either kidney to suggest fixed obstruct ion.
--- OUTSIDE RECORDS SUMMARY | 2025-01-06 11:50 | XMS_ITS | Clinical Summary ---
Author Organization [facility] Address [address] [place] [address] Care Team Providers Care Tape Weaver Name Role Phone Matt Yue RENDON Primary Care Provider [phone] Allergies Active Allergy Reactions Criticality Noted Date [...] at OSH, spine T-score -2.7 (July 2018) Encounters Date Type Department Care Team Description 11/07/2024 Orders Only [facility] Medicine Surgery [address] [place] [address] Gurwinder Mancera MD Paresthesia of left lower extremity (Primary Dx) 10/09/2024 9:30 AM CDT Office Visit [facility] Medicine Orthopaedic Surgery [address] [place] [address] John Rodriguez MD Right knee pain, unspecified chronicity (Primary Dx); Chronic pain of right knee; Primary osteoarthritis of right knee 10/09/2024 8:59 AM CDT - 10/09/2024 11:59 PM CDT Hospital Encounter [facility] [address] [place] [address] Right knee pain, unspecified chronicity Discharge Disposition: Discharge to home or self care from Last 3 Months Surgical History Surgery Date Site/Laterality Comments KNEE ARTHROSCOPY ELBOW SURGERY Medical History Medical History Date Comments Osteoporosis Social History Tobacco Use Types Packs/Day Years Used Date Smoking Tobacco: Never Smokeless Tobacco: Never Comments Unknown Sex and Gender Information Value [...] - Inhaled Oxygen Concentration - - Weight 60.8 kg (134 lb) 10/09/2024 9:33 AM CDT Height 162.6 cm (5' 4) 10/09/2024 9:33 AM CDT Body Mass Index 23 10/09/2024 9:33 AM CDT Plan of Treatment Health Maintenance Due Date Last Done Comments Colon Cancer Screening-Colonoscopy 1955 Depression Screening 1955 Fall Risk Assessment 1955 Hepatitis C Screening 1955 Hepatitis B Screening 1972 Zoster Vaccine (1 of 2) 2004 Well Visit 65+ 2019 Osteoporosis Screening-Bone Density Scan 11/12/2020 11/12/2018 Breast Cancer Screening-Mammogram 10/29/2024 024, 10/30/2023 Covid-19 Vaccine (2024-2 6 season) 2024 08/04/2021, 02/15/2021, 05/23/2020, Additional history exists Influenza Vaccine (#1) 2024 01/22/2021, 2018 DTaP/Tdap/Td Vaccine (2 - Td or Tdap) 02/21/2029 02/21/2019 Pneumococcal vaccine 65+ Completed 06/03/2021, 09/22 Procedures Procedure Name Priority Date/Time Associated Diagnosis Comments XR KNEE RIGHT 4 OR MORE VIEWS Schedule Routine, Read Routine (OP Routine) 10/09/2024 9:18 AM CDT Right knee pain, unspecified chronicity DEXA AXIAL SKELETON BONE DENSITY 1 OR MORE SITES Schedule Routine, Read Routine (OP Routine) 11/12/2018 10:56 AM CDT Osteoporosis, unspecified osteoporosis type, unspecified pathological fracture presence from Last 3 Months or Most Recently Relevant to Health Maintenance Results * XR Knee Right 4 or More Views (10/09/2024 9:18 AM CDT) Anatomical Region Laterality Modality Lower Extremities, Knee Right Computed Radiography 10/09/2024 11:2 0 AM CDT Impressions 10/09/2024 11:29 AM CDT 1. Severe patellofemoral predominant tricompartmental right knee osteoarthritis. Dictated by: Deanna Nathan MD PHD The radiology attending physician has personally reviewed this study, and had reviewed and/or edited this written report and agrees with it. Electronically signed by: Luisito Philippe M.D. Narrative 10/09/2024 11:29 AM CDT EXAMINATION: XR KNEE RIGHT 4 OR MORE VIEWS HISTORY: Right knee pain. FINDINGS: 4 views of the right knee are obtained without comparison. There is severe patellofemoral predominant tricompartmental osteoarthritis. No significant joint effusion. No acute fracture or dislocation. Procedure Note Luisito Philippe MD - 10/09/2024 EXAMINATION: XR KNEE RIGHT 4 OR MORE VIEWS HISTORY: Right knee pain. FINDINGS: 4 views of the right knee are obtained without comparison. There is severe patellofemoral predominant tricompartmental osteoarthritis. No significant joint effusion. No acute fracture or dislocation. IMPRESSION: 1. Severe patellofemoral predominant tricompartmental right knee osteoarthritis. Dictated by: Deanna Nathan MD PHD The radiology attending physician has personally reviewed this study, and had reviewed and/or edited this written report and agrees with it. Electronically signed by: Luisito Philippe M.D. us John Rodriguez MD IMG XR PROCEDURES Final R esult * Dexa Axial Skeleton Bone Density 1 or 2 Site (11/12/2018 10:56 AM CDT) Anatomical Region Laterality Modality Body N/A Radiographic Bridget ging Narrative 11/12/2018 11:45 AM CDT Patient Name: Michelle Santana Date of : 1955 Date of scan: 11/12/2018 Bone mineral density was performed on a HoloQponDirect Discovery Densitometer. Machine Cross-calibration and Precision studies [...] by the International Society of Clinical Densitometry. [id number] Markel Gomez MD IMG DXA PROCEDURES Final Re sult from Last 3 Months or Most Recently Relevant to Health Maintenance Insurance MEDICARE [facility] MEDICARE AETNA SENIOR SUPPLEMENT MEDICARE AETNA SENIOR SUPPLEMENT Care Teams Tape Weaver Relationship Specialty Start Date End Date Yue Gutierrez NP PCP - General 11/12/18
--- OUTSIDE RECORDS SUMMARY | 2025-01-06 11:50 | XMS_ITS | Patient Health Record ---
Author Organization [facility] Address [address] [place], [place] [id number] Care Team Providers Care Database Management Specialist Name Role Phone MANUEL TONG Unavailable [phone] Archie Underwood Unavailable Unavailable Allergies Allergen (clinical drug ingredient) Drug/Non Drug Allergy documented on EMR Reaction Allergy Type Onset Date Status codeine Codeine Unknown Drug Allergy 06/12/2016 active Reason For Referral No Information Medications Medication SIG (Take, Route, Frequency, Duration) Notes Start Date End Date Status Colchicine 0.6 MG 1 tablet Orally; Duration: 30 day(s) Active Medrol 4 MG as directed Orally 3 Active Ibuprofen 800 MG 1 tablet with food or milk as needed Orally every 8 hrs; Duration: 14 days 3 Active montelukast 10 MG Oral Tablet [Singulair] ORAL montelukast 10 MG Oral Tablet [Singulair]Original Medicationmontelukast 10 MG Oral Tablet [Singulair] *Reorder from [employer] for eRx and Interaction Alerts* 7 Active levothyroxine sodium 0.1 MG Oral Tablet [Synthroid] ORAL levothyroxine sodium 0.1 MG Oral Tablet [Synthroid]Original Medicationlevothyroxine sodium 0.1 MG Oral Tablet [Synthroid] *Reorder from [employer] for eRx and Interaction Alerts* 7 Active 14 ACTUAT fluticasone furoate 0.1 MG/ACTUAT / vilanterol 0.025 MG/ACTUAT Dry Powder Inhaler [Breo] INTRAPULMONARY 14 ACTUAT fluticasone furoate 0.1 MG/ACTUAT / vilanterol 0.025 MG/ACTUAT Dry Powder Inhaler [Breo]Original [id number] ACTUAT fluticasone furoate 0.1 MG/ACTUAT / vilanterol [...] Date Coverage End Date Medicare Part B [place] [address] [place] [address] [id number] GABRIELE TRAYLOR Self - patient is the insured [facility] [address] [address] [place] [address] [phone] [id number] GABRIELE TRAYLOR Self - patient is the insured Medical (General) History Medical History History ICD Code asthma - mild persistent Arthritis Thyroid Disease Surgical History Surgery Date(Month/Year) Knee Surgery Shoulder repair Elbow surgery Wrist Surgery
--- OUTSIDE RECORDS SUMMARY | 2025-01-06 11:50 | XMS_ITS | Clinical Summary ---
Author Organization [facility] [employer] Address [address] [place] [address] Care Team Providers Care Inventory Control Manager Name Role Phone Yue Gutierrez MARCOS-CERTIFIED ORTHOPTIST Primary Care Provider [phone] Source Comments [facility] [employer],non-owned Affiliates and Associated Physician Practices is amultiple site organization consisting of ambulatory clinics and hospital sitesin [place], [place], [place] and [place]. This disclosure is being madepursuant to the Care Everywhere program and may not contain all information available regarding this patient. Last updated 18.[facility] Allergies Active Allergy Reactions Criticality Noted Date [...] 2004 ZOSTER VACCINE (1 of 2) 2004 DEPRESSION SCREENING 04/24/2024 COVID-19 VACCINE (3 - 2024-2 6 season) 2024 05/23/2020, 04/25/2020 INFLUENZA VACCINE (#1) 2024 , 01/09/2019 MAMMOGRAM 10/29/2025 10/30/2023, 10/30/2023 Respiratory Syncytial [...] this topic Medical Devices Implanted Type Area Mapping Supervisor Device Identifier Shelf Expiration Date Model / Serial / Lot Biosync Paula Wedge, [id number] Implanted:Qty: 1 on 11/09/2023 by Everardo Ortiz DPM at [facility] Left: Ankle [employer] 03/23/2028 [id number]-[id number] / / [id number] Kit Arthsc Fx 4.75mm 3.5mm Internalbrace Implanted:Qty: 1 on 11/09/2023 by Everardo Ortiz DPM at [facility] Left: Ankle [employer] 08/21/2025 [id number] / / [id number] Biosync Anatomic Cotton Wedge, 16x4.5mm Implanted:Qty: 1 on 11/09/2023 by Everardo Ortiz DPM at [facility] Left: Ankle [employer] 10/21/2026 [id number] / / [id number] Insurance MEDICARE AETNA Care Teams Inventory Control Manager Relationship Specialty Start Date End Date [place] [phone] PCP - General Nurse Practitioner 11/09/23
--- OUTSIDE RECORDS SUMMARY | 2025-01-06 11:50 | XMS_ITS | Clinical Summary ---
Author Organization [facility] Address [address] [place] [address] Care Team Providers Care Client Relation Specialist Name Role Phone Adelfo Weston MD Unavailable Yue Black Primary Care Provider Neelam Ellington MD Unavailable Allergies Active Allergy Reactions Criticality Noted Date Comments Codeine Dizziness,Vomiting Low 11/12/2018 Scopolamine Dizziness 04/27/2023 Medications budesonide-form oterol (SYMBICORT) 160-4.5 MCG/ACT inhaler Inhale 2 puffs into the lungs as needed (sob). In spring and summer 8 Active levothyroxine (SYNTHROID) 88 MCG tabletIndicatio ns:Hypothyroidi sm Take 1 tablet (88 mcg total) by mouth daily. Indications: Underactive Thyroid 6 9 Active albuterol sulfate HFA 108 (90 Base) MCG/ACT inhaler Inhale 2 puffs into the lungs every 6 (six) hours as needed for Wheezing. Active Calcium Carbonate-Vit D-Min (CALCIUM-VITAMI N D-MINERALS OR) Take 1 tablet by mouth 2 (two) times a day. Active losartan (COZAAR) 50 MG tablet Take 1.5 tablets (75 mg total) by mouth daily. 135 tablet 2 4 Active rosuvastatin (CRESTOR) 5 MG tablet Take 1 tablet (5 mg total) by mouth nightly at bedtime. 90 tablet 3 4 Active fenofibrate (TRICOR) 54 MG tablet Take 1 tablet (54 mg total) by mouth nightly. 90 tablet 3 4 Active Active Problems Problem Noted Date Diagnosed Date S/P left rotator cuff repair 03/01/2022 Shoulder impingement syndrome, right 05/17/2021 S/P right rotator cuff repair 10/20/2020 Varicose veins of bilateral lower extremities with other complications 01/08/2019 Mild asthma without complication (HHS/HCC) 01/08 Acquired hypothyroidism 01/08/2019 Chronic venous insufficiency 01/08/2019 Osteoporosis of multiple sites 11/12/2018 Overview (02/06/2019): Overview: Based on DXA at OSH, spine T-score -2.7 (July 2018) Post-traumatic arthritis of left wrist 8 Encounters Date Type Department Care Team Description 12/11/2024 Orders Only [facility] [address] [place] [address] Neelam Ellington MD 11/05/2024 Telephone [facility] [address] [place] [address] Neelam Ellington MD Blood Pressure from Last 3 Months Immunizations Immunization Administration Dates Next Due Arexvy Respiratory Syncytial Virus (RSV, adjuvanted) 0.5 mL, PF 04/03/2023 Fluzone 6 Months+ Quad (0.5 mL Prefilled Syringe) 01/09/2019 Fluzone High Dose - >Age 65 (Prefilled Syringe) 12/29/2022,01/16/2022,01/22/2021,2019 Influenza Adult (Generic) 01/22/2021 MODERNA COVID-19 (12+) MRNA, LNP-S, PF, 100 MCG/ 0.5 ML DOSE 05/23/2020,04/25/2020 Pneumococcal (Pneumovax 23) 10/03/2017 Pneumococcal (Prevnar 20) 06/03/2021 Tdap (Boostrix) 02/21/2019 Family History Medical History Relation Comments Rheumatic Fever Father mitral valve rep laced bp dropped with anesthesia Sister delayed emergence Sister Relation Status Comments Father Maternal Grandfather Maternal Grandmother Mother Paternal Grandfather Paternal Grandmother Sister Social History Tobacco Use Types Packs/Day Years Used Date Smoking Tobacco: Never Smokeless Tobacco: Never Alcohol Use Standard Drinks/Week Comments No 0 (1 standard drink = 0.6 oz pur e alcohol) AUDIT-C Answer Date Recorded Frequency of Alcohol Consumption Never 01/08/2019 Average Number of Drinks Not on file 019 Frequency of Binge Drinking Not on file 12/23 PHQ-2 Answer Date Recorded PHQ-2 Score - If the patient scores above 3, please move on to questions 3-9 0 08/03/2021 Comments No Sex and Gender Information Value Date Recorded Sex Assigned at Female 06/07/2024 9:57 AM [employer] Legal Sex Female 5:40 PM CDT Gender Identity Not on file Sexual Orientation Not on file Last Filed Vital Signs Vital Sign Reading Time Taken Comments Blood Pressure 134/82 02/06/2024 9:38 AM CDT Pulse 93 02/06/2024 9:38 AM CDT Temperature 36.7 C (98.1 F) 04/27/2023 10:55 AM WELDER G[employer]OMATIC Respiratory Rate 12 02/06/2024 9:38 AM CDT Oxygen Saturation 97% 02/06/2024 9:38 AM CDT Inhaled Oxygen Concentration - - Weight 57.6 kg (127 lb) 02/06/2024 9:38 AM CDT Height 162.6 cm (5' 4) 02/06/2024 9:38 AM CDT Body Mass Index 21.8 02/06/2024 9:38 AM CDT Plan of Treatment Upcoming Encounters Date Type Department Care Team (Late st Contact Info) Description 01/27/2025 2:15 PM CDT [facility] [address] [place] [address] Neelam Ellington MD [address] [place] [address] Health Maintenance Due Date Last Done Comments Colorectal Cancer Screening Colonoscopy (10 Years) 1954 Hepatitis C 1972 Zoster Vaccines (1 of 2) 2004 Annual Medicare Wellness Visit 2019 COVID-19 Vaccine ( season) 2024 01/17/2023, 01/23/2022, 08/04/2021, Additional history exists Mammogram Screening 10/29/2025 10/30/2023 DTaP, Tdap and Td Vaccines (2 - Td or Tdap) 02/21/2029 02/21/2019 Dexa Scan (General) Completed 11/12/2018, 9 Pneumococcal Vaccine: 50+ Years Completed 06/03/2021, 10/03/2017 RSV Immunization or 60+ Years Completed 04/03/2023 Meningococcal B Vaccine Aged Out No l onger eligible based on patient's age to complete this topic Meningococcal Vaccine Aged Out No bahman dora eligible based on patient's age to complete this topic RSV Immunizations Under 20 Months Aged Out No longer eligible based on patient's age to complete this topic Medical Devices Implanted Type Area Manager Sql Device Identifier Shelf Expiration Date Model / Serial / Lot Plate Plate Wrist Screw Screw Left: Wrist Description:From rt. Wrist f racture Sling Obtryx Ii Halo - [id number] Implanted:Qty : 1 on 04/27/2023 by Sonu Turcios MD at [facility] [id number] 12/27/2025 [id number] / / [id number] Procedures Procedure Name Priority Date/Time Associated Diagnosis Comments MG SCREENING W MANISHA NUVIA DIGI Routine 10/30/2023 2:46 PM CDT Visit for screening mammogram from Last 3 Months or Most Recently Relevant to Health Maintenance Results * MG SCREENING W MANISHA NUVIA DIGI (10/30/2023 2:46 PM CDT) Anatomical Region Laterality Modality Breast Bilateral Mammography 10/30/2023 2:45 PM CDT Impressions 10/30/2023 2:46 PM CDT IMPRESSION: No interval features to suggest malignancy. In the absence of clinical symptoms, return for annual screening mammogram due in 1 year. RECOMMENDATION: Routine Screening, Bilateral Mammogram in 1 year Clinical discussion based upon her age and personal risk factors is recommended for the following: Annual mammogram plus supplemental screening is encouraged for dense breast tissue patients, especially if deemed a high risk patient. Highest sensitivity and cancer detection rate is supplemental screening with MRI breast with/without IV gadolinium contrast. Recommend alternate 6 months apart between MRI and mammogram for screening. If she cannot tolerate or get approval of MRI, then breast ultrasound screening is a less sensitive alternative. ASSESSMENT: ACR BI-RADS 2 - BENIGN FINDING(S) Ordered By: YUE BLACK Interpreted By: Renzo Herrera MD, 10/30/2023 2:45 PM Narrative 10/30/2023 2:46 PM CDT EXAMINATION: BILATERAL SCREENING MAMMOGRAPHY Exam Date: 10/30/2023 2:08 PM CLINICAL INDICATION: 68 years of age female routine screening. COMPARISON: Dating back to 11/26/2019 TECHNIQUE: Digital CC & MLO views. Tomosynthesis imaging acquisition Study read with the assistance of a computer-aided detection system. TISSUE DENSITY: The breast tissue is heterogeneously dense, which may obscure small masses. FINDINGS: Dense breast tissue with nodular pattern and calcifications are grossly stable. No suspicious grouping of microcalcifications, architectural distortion, or any suspicious nodule 3 dimensionally demonstrated in either breast. Yue JACOBSONNP MAMMO Final Resul t from Last 3 Months or Most Recently Relevant to Health Maintenance Insurance MEDICARE MEDICARE AETNA Care Teams Client Relation Specialist Relationship Specialty Start Date End Date Yue Black APNP [address] [place] [address] PCP - General NURSE PRACTITIONER 01/01/24 Adelfo Weston MD Vascular/Ore Roaster INTERNAL MEDICINE 12/17/18 Neelam Ellington MD [address] [place] [address] Consulting Physician CARDIOVASCULAR DISEASE 01/29/24
--- OUTSIDE RECORDS SUMMARY | 2025-01-06 11:50 | XMS_ITS | Encounter Summary ---
Author Organization [facility] Address [address] [place] [address] Care Team Providers Care Steam And Gas Turbines Assembler Name Role Phone Adelfo Weston MD Unavailable Frederick Young MD Primary Care Provider [phone] Yue Gutierrez Primary Care Provider [phone] Neelam Ellington MD Unavailable Encounter Details Date Type Department Care Team (Late st Contact Info) Description 04/23/[address] [facility], [place] [id number] Sonu Turcios MD [address] [facility]. [place], [place] [id number] Social History Tobacco Use Types Packs/Day Years [...] Sex Assigned at Female 06/07/2024 9:57 AM GENERAL FARM HAND Legal Sex Female 5:40 PM CDT Gender Identity Not on file Sexual Orientation Not on file documented as of this encounter H&P Notes * Sonu Turcios MD - 04/23/2023 11:50 AM CST History and Physical SUBJECTIVE Patient is 68-year-old female White Or Not Of / Origin with chief complaintof stress urinary incontience. She desires definitive surgical management. Past Medical History: Diagnosis Date Arthritis Asthma Hypothyroidism Motion sickness Osteopenia PONV (postoperative nausea and vomiting) Varicose veins of both lower extremities with complications Past Surgical History: Procedure Laterality Date ELBOW SURGERY Right EYE SURGERY lasik HC INJ SCLEROSING SOLUTN MULT VEIN Bilateral 05/02/2019 Asclera 1% injected 1cc foamed to 2cc left anterior deleon & Right medial mid calf HERNIA REPAIR KNEE ARTHROSCOPY Bilateral 3 right knee 2 left leg NJX NONCMPND SCLRSNT WRINKLE CHASER VN Right 03/07/2019 Microfoam chemical ablation using Varithena 5 cc injected right medial mid anterior & lateral distal thigh REPAIR ROTATOR CUFF,ACUTE Bilateral bicep reattachment on left TUBAL LIGATION WRIST FRACTURE SURGERY Left (Not in a hospital admission) Current Outpatient Medications Medication Sig Dispense Refill albuterol sulfate HFA 108 (90 Base) MCG/ACT inhaler Inhale 2 puffs into the lungs every 6 (six) hours as needed for Wheezing. budesonide-formoterol (SYMBICORT) 160-4.5 MCG/ACT inhaler Inhale 2 puffs into the lungs as needed (sob). In spring and summer Calcium Carbonate-Vit D-Min (CALCIUM-VITAMIN D-MINERALS OR) Take 1 tablet by mouth 2 (two) times a day. fenofibrate 48 MG tablet Take 54 mg by mouth nightly. levothyroxine 88 MCG tablet Take 1 tablet (88 mcg total) by mouth daily. Indications: Underactive Thyroid 6 ZINC-VITAMIN C OR Take 1 tablet by mouth daily. No current facility-administered medications for this visit. Allergies Allergen Reactions Codeine Dizziness and Vomiting Social History Tobacco Use Smoking status: Never Smokeless tobacco: Never Substance Use Topics Alcohol use: No Family History Problem Relation Name Age of Onset Rheumatic Fever Father mitral valve replaced Other (bp dropped with anesthesia) Sister Other (delayed emergence) Sister OBJECTIVE Vitals: 24hr Min/Max: @FLOWSTAT(6,8,5,9,10:24::1)@ Most Recent : There were no vitals filed for this visit. @[id number]@ @IOTHISSHIFT@ Physical Exam: General: Patient is alert and oriented in no acute distress. Head: Normocephalic, atraumatic. Nares are symmetric without nasal flaring or respiratory distress.No lip cyanosis. Eyes: Sclera anicteric. Cardiovascular: Peripheral perfusion appears adequate. No digital clubbing or cyanosis present. Chest: Non-labored respirations. Comfortable respiratory effort without recruitment of accessory respiratory muscles. Abdominal: Abdomen soft, nontender, nondistended. No palpable masses. Gu: Urethral mobility noted Musculoskeletal: Normal station and posture. Moves all extremities symmetrically. Neurological: No focal neurologic deficit. Psychiatric: Appropriate affect and mood. Skin: Normal coloration and turgor. Hematological/Immunological: No bleeding gums or jaundice. Lymphatic: No femoral or inguinal palpable lymphadenopathy. Assessment: Stress Urinary Incontinence Plan: Pt has elected to undergo Mid-urethral sling. Risks, benefits and alternative d/w the patient. Risks include but not limited to bleeding, infection, pain, anesthesia, damage to surrounding organs. There is a risk of failure, recurrance and that this procedure will not help OAB symptoms if present and in some cases may worsen. There is a risk of mesh erosion or exposure in the vagina or urinary tract. There is a risk of urinary retention requiring catheterization and secondary procedure to lossen, cut or remove the sling. There is a risk of returning to the OR for any of the above listed complications. Patient understands and wishes to proceed. RAL FARM HAND documented in this encounter Plan of Treatment Upcoming Encounters Date Type Department Care Team (Late st Contact Info) Description 01/27/2025 2:15 PM CDT Office Visit [facility] [place] [phone] Neelam Ellington MD [address] [place] [address] documented as of this encounter Visit Diagnoses Not on filedocumented in this encounter Care Teams Steam And Gas Turbines Assembler Relationship Specialty Start Date End Date Frederick Young MD [address] [place] [address] PCP - General FAMILY PRACTICE 07/16/20 12/31/23 Yue Gutierrez APNP [address] [place] [address] PCP - General NURSE PRACTITIONER 01/01/24 Adelfo Weston MD Vascular/Traffic Safety Administrator INTERNAL MEDICINE 12/17/18 Neelam Ellington MD [address] [place] [address] Consulting Physician CARDIOVASCULAR DISEASE 01/29/24 documented as of this encounter
--- OUTSIDE RECORDS SUMMARY | 2025-01-06 11:51 | XMS_ITS | Encounter Summary ---
Author Organization [facility] Address [address] [place] [address] Care Team Providers Care Cotton Baler Name Role Phone Yue Gutierrez Primary Care Provider Adelfo Weston MD Unavailable Frederick Young MD Primary Care Provider [phone] Yue Gutierrez Primary Care Provider Neelam Ellington MD Unavailable Encounter Details Date Type Department Care Team (Late st Contact Info) Description 01/08/2019 Abstract [facility] [address] [place] [address] Adelfo Weston MD [address] [place] [address], [address] [place] [address] Social History Tobacco Use Types Packs/Day Years Used Date Smoking Tobacco: Never Smokeless Tobacco: Never Alcohol Use Standard Drinks/Week Comments No 0 (1 standard drink = 0.6 oz pur e alcohol) AUDIT-C Answer Date Recorded Frequency of Alcohol Consumption Never 01/08/2019 Average Number of Drinks Not on file 019 Frequency of Binge Drinking Not on file 12/23 Comments Unknown Sex and Gender Information Value Date Recorded Sex Assigned at Female 06/07/2024 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 Legal Sex Female 5:40 PM CDT Gender Identity Not on file Sexual Orientation Not on file documented as of this encounter Functional Status documented as of this encounter Plan of Treatment Upcoming Encounters Date Type Department Care Team (Late st Contact Info) Description 01/27/2025 2:15 PM CDT [facility] [address] [place] [address] Neelam Ellington MD [address] [place], [place] [address] documented as of this encounter Visit Diagnoses Not on filedocumented in this encounter Care Teams Cotton Baler Relationship Specialty Start Date End Date Yue Gutierrez APNP [address] [place] [address] PCP - General NURSE PRACTITIONER 12/17/18 07/15/20 Frederick Young MD [address] [place] [address] PCP - General FAMILY PRACTICE 07/16/20 12/31/23 Yue Gutierrez APNP [address] [place] [address] PCP - General NURSE PRACTITIONER 01/01/24 Adelfo Weston MD [address] [place] [address] Vascular/Manager Functional INTERNAL MEDICINE 12/17/18 Neelam Ellington MD [address] [place], [place] [address] Consulting Physician CARDIOVASCULAR DISEASE 01/29/24 documented as of this encounter
--- OUTSIDE RECORDS SUMMARY | 2025-01-06 11:51 | XMS_ITS | Encounter Summary ---
Author Organization [facility] Address [address] [place] [address] Care Team Providers Care Regulatory Affairs Coordinator Name Role Phone Adelfo Weston MD Unavailable Yue Gutierrez Primary Care Provider [phone] Neelam Ellington MD Unavailable Encounter Details Date Type Department Care Team (Late st Contact Info) Description 06/13/2024 Inter[facility]ve Message 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 Legal Sex Female 5:40 PM CDT Gender Identity Not on file Sexual Orientation Not on file documented as of this encounter Plan of Treatment Upcoming Encounters Date Type Department Care Team (Late st Contact Info) Description 01/27/2025 2:15 PM CDT Office Visit [facility] [address] [place] [address] Neelam Ellington MD [address] [place] [address] documented as of this encounter Visit Diagnoses Not on filedocumented in this encounter Care Teams Regulatory Affairs Coordinator Relationship Specialty Start Date End Date Yue Gutierrez APNP [address] [place] [address] PCP - General NURSE PRACTITIONER 01/01/24 Adelfo Weston MD Vascular/Line Up Examiner INTERNAL MEDICINE 12/17/18 Neelam Ellington MD [address] [place] [address] Consulting Physician CARDIOVASCULAR DISEASE 01/29/24 documented as of this encounter
--- OUTSIDE RECORDS SUMMARY | 2025-01-06 11:51 | XMS_ITS | Encounter Summary ---
Author Organization [facility] Address [facility] [place] [address] Care Team Providers Care Photographic Equipment Mechanic Name Role Phone DickeyJefry DO Primary Care Provider [phone] Yue Gutierrez Primary Care Provider Adelfo Weston MD Unavailable [facility] Primary Care Provider [phone] Yue Gutierrez Primary Care Provider Neelam Ellington MD Unavailable Encounter Details Date Type Department Care Team (Late st Contact Info) Description 02/02/2015 Abstract [facility] [address] [place], [place] [id number] , Yenni Hou MD Social History Tobacco Use Types Packs/Day Years Used Date Smoking Tobacco: Never Assessed Comments Unknown Sex and Gender Information Value Date Recorded Sex Assigned at Female 06/07/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 Sex Female 5:40 PM CDT Gender Identity Not on file Sexual Orientation Not on file documented as of this encounter Plan of Treatment Upcoming Encounters Date Type Department Care Team (Late st Contact Info) Description 01/27/2025 2:15 PM CDT Office Visit [facility] [address] [place] [address] Neelam Ellington MD [address] [place] [address] documented as of this encounter Visit Diagnoses Not on filedocumented in this encounter Care Teams Photographic Equipment Mechanic Relationship Specialty Start Date End Date Jefry Landry DO PCP - General 01/18/12 12/16/18 Yue Gutierrez APNP [address] [place] [address] PCP - General NURSE PRACTITIONER 12/17/18 07/15/20 Frederick Young MD [address] [place] [phone] PCP - General FAMILY PRACTICE 07/16/20 12/31/23 Yue Gutierrez APNP [address] [place] [address] PCP - General NURSE PRACTITIONER 01/01/24 Adelfo Weston MD [address] [place] [address] Vascular/Teletypewriter Installer INTERNAL MEDICINE 12/17/18 Neelam Ellington MD [address] [place] [address] Consulting Physician CARDIOVASCULAR DISEASE 01/29/24 documented as of this encounter
== END 2025-01-06 10:21 | disposition home or self-care (01) ==
LOC: CHSIMG 10:22
PROVIDERS: PCP Family Medicine; Visit Provider Urology
DX: N13.30 Unspecified hydronephrosis (principal)
CPT/HCPCS: 78708; A9562; J1938

== ENCOUNTER 2025-01-14 10:00 | Outpatient (RCR) | payer MEDICARE, SELFPAY | END 2025-01-14 23:59 | disposition home or self-care (01) | LOC: ANHAUDIO 10:00 | PROVIDERS: PCP Family Medicine; Visit Provider Family Medicine | DX: Z46.1 Encounter for fitting and adjustment of hearing aid (principal) | CPT/HCPCS: 99199; V5261 ==